=== PATIENT | male | born 1985 | race African-American/Black ===

== ENCOUNTER 2016-12-26 07:08 | Emergency (ER) | payer MEDICARE, MEDICAID ==
[~2016-12-26] VITALS: Ht 180.3 cm; Wt 83.0 kg
[~2016-12-26 07:08] MED LIST: DIVA500T35 PO; QUET200T PO
[2016-12-26] MEDS ORDERED: KETOROLAC TROMETHAMINE 30 MG/ML VIAL IVP ONE (07:30)
[2016-12-26] MEDS ORDERED: SODIUM CHLORIDE 0.9% 1,000 ML IV ONE (07:30)
[2016-12-26 07:41] LABS: BASOPHILS # (AUTO) 0.01 K/uL (0.00-0.20); BASOPHILS % (AUTO) 0.3 % (0.0-2.0); EOSINOPHILS # (AUTO) 0.04 K/uL (0.00-0.70); EOSINOPHILS % (AUTO) 0.84 % (1.0-6.0); HEMATOCRIT 42.5 % (41-53); LYMPHOCYTES # (AUTO) 2.4 K/uL (1.0-4.8); LYMPHOCYTES % (AUTO) 43.8 % (22.0-44.0); MEAN CORPUSCULAR HGB CONC 33.1 G/dL (31.0-37.0); MEAN CORPUSCULAR VOLUME 88 fL (80-100); MONOCYTES # (AUTO) 0.4 K/uL (0.1-1.0); NEUTROPHILS # (AUTO) 2.5 K/uL (1.8-7.7); NEUTROPHILS % (AUTO) 47.2 % (40.0-70.0); PLATELET COUNT (AUTO) 235 K/uL (150-450); RED BLOOD CELL COUNT(AUTO) 4.85 MIL/uL (4.50-5.90); RED CELL DISTRIBUTION WIDTH 14.8 % (11.5-14.5); WHITE BLOOD COUNT (AUTO) 5.4 K/uL (4.5-11.0)
[2016-12-26 07:42] LABS: RBC MORPHOLOGY COMMENT NORMAL RBC MORPH
[2016-12-26 07:52] LABS: ANION GAP 9 mmol/L (8-16); CALCIUM, TOTAL 8.9 mg/dL (8.8-10.5); CARBON DIOXIDE 27 mmol/L (22-29); CHLORIDE 101 mmol/L (98-107); GLOMERULAR FILTR. RATE CALC > 60 mL/min (>60); POTASSIUM 3.3 mmol/L (3.5-5.1); SODIUM SERUM 137 mmol/L (136-145); UREA NITROGEN, BLOOD 19 mg/dL (7-18)
[2016-12-26 07:58] LABS: ALANINE AMINOTRANSFERASE 39 U/L (12-78); ALBUMIN 3.8 g/dL (3.4-5.0); ASPARTATE AMINOTRANSFERASE 34 U/L (15-37); BILIRUBIN,TOTAL 0.4 mg/dL (0.1-1.0); TOTAL PROTEIN, SERUM 7.9 g/dL (6.4-8.2)
[2016-12-26 08:02] LABS: APPEARANCE,URINE TURBID (CLEAR); GLUCOSE, URINE (UA) NEGATIVE (NEGATIVE); KETONES,URINE TRACE mg/dL (NEGATIVE); LEUKOCYTE ESTERASE ,URINE SMALL (NEGATIVE); OCCULT BLOOD,URINE LARGE (NEGATIVE); PROTEIN,URINE POS 1+ (NEGATIVE)
[2016-12-26 08:26] LABS: RBC,URINE >100 /HPF (0-2)
[2016-12-26 08:27] LABS: SQUAMOUS EPITHELIAL CELL,UR Rare /LPF (None Seen); WBC,URINE 0-2 /HPF (0-5)
[2016-12-26 10:24] VITALS: BP 119/70
== END 2016-12-26 11:07 | disposition home or self-care (01) ==
LOC: EMS 07:10
DX: N20.9 Urinary calculus, unspecified (principal); I10 Essential (primary) hypertension; F17.210 Nicotine dependence, cigarettes, uncomplicated; F12.90 Cannabis use, unspecified, uncomplicated
CPT/HCPCS: 36415; 74176; 80053; 81001; 85025; 96360; 96361; 99285; J1885; J7030; 96374

== ENCOUNTER 2017-01-09 10:01 | Inpatient (IN) | payer MEDICARE, MEDICAID ==
[~2017-01-09] VITALS: Ht 180.3 cm; Wt 72.6 kg
[2017-01-09 10:48] LABS: BASOPHILS # (AUTO) 0.03 K/uL (0.00-0.20); BASOPHILS % (AUTO) 0.5 % (0.0-2.0); EOSINOPHILS # (AUTO) 0.02 K/uL (0.00-0.70); EOSINOPHILS % (AUTO) 0.34 % (1.0-6.0); HEMATOCRIT 45.2 % (41-53); HEMOGLOBIN 14.8 g/dL (13.5-17.5); LYMPHOCYTES # (AUTO) 1.8 K/uL (1.0-4.8); LYMPHOCYTES % (AUTO) 28.4 % (22.0-44.0); MEAN CORPUSCULAR HEMOGLOBIN 28.8 pg (26.0-34.0); MEAN CORPUSCULAR HGB CONC 32.8 G/dL (31.0-37.0); MEAN CORPUSCULAR VOLUME 88 fL (80-100); MONOCYTES # (AUTO) 0.3 K/uL (0.1-1.0); MONOCYTES % (AUTO) 5.3 % (2.0-9.0); NEUTROPHILS # (AUTO) 4.1 K/uL (1.8-7.7); NEUTROPHILS % (AUTO) 65.5 % (40.0-70.0); PLATELET COUNT (AUTO) 242 K/uL (150-450); RED BLOOD CELL COUNT(AUTO) 5.16 MIL/uL (4.50-5.90); RED CELL DISTRIBUTION WIDTH 14.8 % (11.5-14.5); WHITE BLOOD COUNT (AUTO) 6.3 K/uL (4.5-11.0)
[2017-01-09 10:49] LABS: RBC MORPHOLOGY COMMENT NORMAL RBC MORPH
[2017-01-09 10:59] LABS: ANION GAP 6 mmol/L (8-16); CALCIUM, TOTAL 9.3 mg/dL (8.8-10.5); CARBON DIOXIDE 30 mmol/L (22-29); CHLORIDE 103 mmol/L (98-107); CREATININE 0.96 mg/dL (0.60-1.30); GLOMERULAR FILTR. RATE CALC > 60 mL/min (>60); POTASSIUM 3.5 mmol/L (3.5-5.1); SODIUM SERUM 139 mmol/L (136-145); UREA NITROGEN, BLOOD 14 mg/dL (7-18)
[2017-01-09 11:05] LABS: ALANINE AMINOTRANSFERASE 25 U/L (12-78); ALBUMIN 4.2 g/dL (3.4-5.0); ASPARTATE AMINOTRANSFERASE 21 U/L (15-37); BILIRUBIN,TOTAL 0.4 mg/dL (0.1-1.0); TOTAL PROTEIN, SERUM 8.3 g/dL (6.4-8.2)
[2017-01-09 11:07] LABS: VALPROIC ACID < 3 mcg/mL (50-100)
[2017-01-09] MEDS ORDERED: HALOPERIDOL 5 MG TABLET PO ONE (13:15)
[2017-01-09] MEDS ORDERED: DiphenhydrAMINE HCL 25 MG CAPSULE PO ONE (13:15)
[2017-01-09] MEDS ORDERED: LORazepam 2 MG TABLET PO ONE (13:15)
[2017-01-09] MEDS ORDERED: HALOPERIDOL 5 MG TABLET PO PRN (13:30)
[2017-01-09] MEDS ORDERED: ZOLPIDEM TARTRATE 10 MG TABLET PO PRN (13:30)
[2017-01-09] MEDS ORDERED: IBUPROFEN 600 MG TABLET PO PRN (17:00)
[2017-01-09] MEDS ORDERED: ACETAMINOPHEN 325 MG TABLET PO PRN (17:00)
[2017-01-09 17:20] VITALS: BP 123/75
[2017-01-09] MEDS: NICOTINE 21 MG/24 HOUR PATCH TD SCH (17:57)
[2017-01-10 04:39] VITALS: BP 132/85
[2017-01-10 08:51] VITALS: BP 131/74
[2017-01-10] MEDS: LORazepam 2 MG TABLET PO PRN ×2 (09:18→16:32)
[2017-01-10] MEDS: NICOTINE 21 MG/24 HOUR PATCH TD SCH (09:21)
[2017-01-10] MEDS: QUEtiapine FUMARATE 200 MG TABLET PO SCH (16:32)
[2017-01-10] MEDS: DIVALPROEX SODIUM 500 MG DR TABLET PO SCH (16:32)
[2017-01-10 21:39] VITALS: BP 118/61
[2017-01-10] MEDS ORDERED: IBUPROFEN 400 MG TABLET PO PRN (21:45)
[2017-01-10] MEDS ORDERED: ACETAMINOPHEN 325 MG TABLET PO PRN (21:45)
[2017-01-11 07:47] LABS: HEMOGLOBIN A1C 6.1 % (4.5-6.2)
[2017-01-11 07:49] LABS: CHOL/HDL RATIO 3.1 (4.2-7.3); THYROID STIMULATING HORMONE 0.44 uIU/mL (0.36-3.74)
[2017-01-11] MEDS: DIVALPROEX SODIUM 500 MG DR TABLET PO SCH ×2 (08:32→16:31)
[2017-01-11] MEDS: NICOTINE 21 MG/24 HOUR PATCH TD SCH (08:36)
[2017-01-11 08:55] VITALS: BP 128/82
[2017-01-11] MEDS: QUEtiapine FUMARATE 200 MG TABLET PO SCH ×3 (09:00→17:30)
[2017-01-11 12:39] LABS: APPEARANCE,URINE TURBID (CLEAR); GLUCOSE, URINE (UA) NEGATIVE (NEGATIVE); KETONES,URINE NEGATIVE (NEGATIVE); LEUKOCYTE ESTERASE ,URINE NEGATIVE (NEGATIVE); OCCULT BLOOD,URINE NEGATIVE (NEGATIVE); PH,URINE 7.5 (5.0-8.0); PROTEIN,URINE NEGATIVE (NEGATIVE)
[2017-01-11 12:42] LABS: ADD UA MICROSCOPIC NO
[2017-01-11] MEDS: LORazepam 2 MG TABLET PO PRN (16:31)
[2017-01-11 21:52] VITALS: BP 131/64
[2017-01-12 07:02] LABS: HEMOGLOBIN A1C 6.2 % (4.5-6.2)
[2017-01-12 07:25] LABS: CHOL/HDL RATIO 3.2 (4.2-7.3); CREATINE KINASE, TOTAL 241 U/L (39-308); THYROID STIMULATING HORMONE 1.02 uIU/mL (0.36-3.74)
[2017-01-12 07:45] LABS: CREATINE KINASE MB < 0.5 ng/mL (0-5)
[2017-01-12] MEDS: QUEtiapine FUMARATE 200 MG TABLET PO SCH (09:00)
[2017-01-12] MEDS: DIVALPROEX SODIUM 500 MG DR TABLET PO SCH (09:35)
[2017-01-12] MEDS: NICOTINE 21 MG/24 HOUR PATCH TD SCH (09:39)
[2017-01-13 14:54] LABS: HEPATITIS Bs ANTIGEN SCREEN P Negative (Negative); HEPATITIS C AB SCREEN <0.1 s/co ratio (0.0-0.9)
== END 2017-01-12 15:33 | disposition home or self-care (01) | DRG 885 ==
LOC: EMS 10:03 → 3EX 15:49
DX: F25.1 Schizoaffective disorder, depressive type (principal); F12.90 Cannabis use, unspecified, uncomplicated; F17.210 Nicotine dependence, cigarettes, uncomplicated; E55.9 Vitamin D deficiency, unspecified; G43.909 Migraine, unspecified, not intractable, without status migrainosus; I10 Essential (primary) hypertension; F10.10 Alcohol abuse, uncomplicated; F31.9 Bipolar disorder, unspecified; G47.00 Insomnia, unspecified; F22 Delusional disorders; F19.10 Other psychoactive substance abuse, uncomplicated; Z53.29 Procedure and treatment not carried out because of patient's decision for other reasons; Z91.14 Patient's other noncompliance with medication regimen; Z91.5 Personal history of self-harm; Z71.51 Drug abuse counseling and surveillance of drug abuser; Z79.899 Other long term (current) drug therapy; Z91.013 Allergy to seafood
CPT/HCPCS: 80074; 82306; 82607; 82746; 83036; 83735; 84439; 84443; 86592; 99285; G0480

== ENCOUNTER 2018-07-29 20:12 | Inpatient (IN) | payer OTHER, MEDICAID ==
[~2018-07-29] VITALS: Ht 180.3 cm; Wt 69.4 kg
[~2018-07-29 20:12] MED LIST changes: +DIVA-78 PO; -DIVA500T35 PO
[2018-07-29 21:50] LABS: BASOPHILS % (AUTO) 0.4 % (0.0-2.0); EOSINOPHILS % (AUTO) 0.5 % (1.0-6.0); HEMATOCRIT 44.6 % (41-53); HEMOGLOBIN 15.1 g/dL (13.5-17.5); LYMPHOCYTES # (AUTO) 3.1 K/uL (1.0-4.8); LYMPHOCYTES % (AUTO) 27.1 % (22.0-44.0); MEAN CORPUSCULAR HEMOGLOBIN 29.5 pg (26.0-34.0); MEAN CORPUSCULAR HGB CONC 33.8 G/dL (31.0-37.0); MEAN CORPUSCULAR VOLUME 87 fL (80-100); MONOCYTES # (AUTO) 0.9 K/uL (0.1-1.0); MONOCYTES % (AUTO) 7.5 % (2.0-9.0); NEUTROPHILS # (AUTO) 7.4 K/uL (1.8-7.7); NEUTROPHILS % (AUTO) 64.5 % (40.0-70.0); PLATELET COUNT (AUTO) 253 K/uL (150-450); RED BLOOD CELL COUNT(AUTO) 5.11 MIL/uL (4.50-5.90)
[2018-07-29 21:51] LABS: AMPHET/METH SCREEN,URINE NEGATIVE (NEGATIVE); BARBITURATE SCREEN, URINE NEGATIVE (NEGATIVE); BENZODIAZEPINES SCREEN,URINE NEGATIVE (NEGATIVE); CANNABINOID SCREEN,URINE POSITIVE (NEGATIVE); COCAINE SCREEN,URINE NEGATIVE (NEGATIVE); METHADONE SCREEN, URINE NEGATIVE (NEGATIVE); OPIATE SCREEN,URINE NEGATIVE (NEGATIVE)
[2018-07-29 21:52] LABS: PHENCYCLIDINE SCREEN,URINE NEGATIVE (NEGATIVE)
[2018-07-29 22:00] LABS: ANION GAP 6 mmol/L (8-16); CALCIUM, TOTAL 9.7 mg/dL (8.8-10.5); CARBON DIOXIDE 33 mmol/L (22-29); CHLORIDE 101 mmol/L (98-107); CREATININE 1.13 mg/dL (0.60-1.30); GLOMERULAR FILTR. RATE CALC > 60 mL/min (>60); GLUCOSE,RANDOM 85 mg/dL (70-110); POTASSIUM 3.8 mmol/L (3.5-5.1); SODIUM SERUM 140 mmol/L (136-145); UREA NITROGEN, BLOOD 21 mg/dL (7-18)
[2018-07-29 22:06] LABS: ALANINE AMINOTRANSFERASE 47 U/L (12-78); ALBUMIN 3.9 g/dL (3.4-5.0); ALKALINE PHOSPHATASE 68 U/L (46-116); ASPARTATE AMINOTRANSFERASE 84 U/L (15-37); BILIRUBIN,TOTAL 0.4 mg/dL (0.1-1.0); TOTAL PROTEIN, SERUM 8.2 g/dL (6.4-8.2)
[2018-07-30] MEDS ORDERED: MIRTAZAPINE 15 MG TABLET PO ONE
[2018-07-30] MEDS ORDERED: ZOLPIDEM TARTRATE 10 MG TABLET PO PRN (00:15)
[2018-07-30 00:59] LABS: HEMOGLOBIN A1C 5.7 % (4.5-6.2)
[2018-07-30 01:07] LABS: CHOL/HDL RATIO 2.9 (4.2-7.3); CHOLESTEROL 186 mg/dL (131-200); FREE T4 (FREE THYROXINE) 0.98 ng/dL (0.76-1.46); HDL CHOLESTEROL 64 mg/dL (40-60); LDL CHOL (CALC.) 107 mg/dL (0-130); THYROID STIMULATING HORMONE 0.85 uIU/mL (0.36-3.74); TRIGLYCERIDES 73 mg/dL (15-150)
[2018-07-30 02:51] VITALS: BP 124/83
[2018-07-30] MEDS: LORazepam 2 MG TABLET PO PRN ×2 (02:51→17:23)
[2018-07-30] MEDS: HALOPERIDOL 5 MG TABLET PO PRN ×2 (02:51→15:51)
[2018-07-30 08:10] VITALS: BP 118/62
[2018-07-30 08:31] LABS: BASOPHILS % (AUTO) 0.1 % (0.0-2.0); EOSINOPHILS % (AUTO) 1.1 % (1.0-6.0); HEMOGLOBIN 14.4 g/dL (13.5-17.5); LYMPHOCYTES # (AUTO) 3.6 K/uL (1.0-4.8); LYMPHOCYTES % (AUTO) 42.4 % (22.0-44.0); MEAN CORPUSCULAR HEMOGLOBIN 30.5 pg (26.0-34.0); MEAN CORPUSCULAR VOLUME 87 fL (80-100); MONOCYTES # (AUTO) 0.5 K/uL (0.1-1.0); MONOCYTES % (AUTO) 6.5 % (2.0-9.0); NEUTROPHILS # (AUTO) 4.2 K/uL (1.8-7.7); NEUTROPHILS % (AUTO) 49.9 % (40.0-70.0); PLATELET COUNT (AUTO) 229 K/uL (150-450); RED BLOOD CELL COUNT(AUTO) 4.71 MIL/uL (4.50-5.90)
[2018-07-30 08:59] LABS: ALANINE AMINOTRANSFERASE 35 U/L (12-78); ALBUMIN 3.8 g/dL (3.4-5.0); ALKALINE PHOSPHATASE 58 U/L (46-116); ANION GAP 8 mmol/L (8-16); ASPARTATE AMINOTRANSFERASE 65 U/L (15-37); BILIRUBIN,TOTAL 0.3 mg/dL (0.1-1.0); CALCIUM, TOTAL 9.1 mg/dL (8.8-10.5); CARBON DIOXIDE 28 mmol/L (22-29); CHLORIDE 103 mmol/L (98-107); CHOL/HDL RATIO 2.9 (4.2-7.3); CHOLESTEROL 168 mg/dL (131-200); CREATININE 0.98 mg/dL (0.60-1.30); FREE T4 (FREE THYROXINE) 0.97 ng/dL (0.76-1.46); GLOMERULAR FILTR. RATE CALC > 60 mL/min (>60); GLUCOSE,RANDOM 102 mg/dL (70-110); HDL CHOLESTEROL 57 mg/dL (40-60); LDL CHOL (CALC.) 101 mg/dL (0-130); POTASSIUM 4.1 mmol/L (3.5-5.1); SODIUM SERUM 139 mmol/L (136-145); THYROID STIMULATING HORMONE 0.86 uIU/mL (0.36-3.74); TOTAL PROTEIN, SERUM 7.1 g/dL (6.4-8.2); TRIGLYCERIDES 48 mg/dL (15-150); UREA NITROGEN, BLOOD 18 mg/dL (7-18)
[2018-07-30] MEDS: QUEtiapine FUMARATE 200 MG TABLET PO SCH ×2 (12:44→20:34)
[2018-07-30] MEDS: DIVALPROEX SODIUM 500 MG DR TABLET PO SCH ×2 (12:44→20:34)
[2018-07-30 16:04] VITALS: BP 110/77
[2018-07-31 03:44] VITALS: BP 120/66
[2018-07-31] MEDS: HALOPERIDOL 5 MG TABLET PO PRN ×2 (06:50→16:07)
[2018-07-31] MEDS: LORazepam 2 MG TABLET PO PRN ×2 (06:50→17:20)
[2018-07-31 08:10] VITALS: BP 116/79
[2018-07-31] MEDS: DIVALPROEX SODIUM 500 MG DR TABLET PO SCH ×2 (08:21→20:36)
[2018-07-31] MEDS: QUEtiapine FUMARATE 200 MG TABLET PO SCH (08:21)
[2018-07-31 16:10] VITALS: BP 104/64
[2018-07-31] MEDS: QUEtiapine FUMARATE 300 MG TABLET PO SCH (20:36)
[2018-07-31] MEDS ORDERED: QUEtiapine FUMARATE 300 MG TABLET PO SCH (21:00)
[2018-08-01 05:12] VITALS: BP 115/81
[2018-08-01 08:07] VITALS: BP 132/81
[2018-08-01] MEDS: QUEtiapine FUMARATE 300 MG TABLET PO SCH (08:07)
[2018-08-01] MEDS: DIVALPROEX SODIUM 500 MG DR TABLET PO SCH ×2 (08:07→16:54)
[2018-08-01] MEDS: LORazepam 2 MG TABLET PO PRN (08:08)
[2018-08-01 16:10] VITALS: BP 110/64
[2018-08-01] MEDS: BENZTROPINE MESYLATE 1 MG TABLET PO SCH (16:54)
[2018-08-01] MEDS: QUEtiapine FUMARATE 200 MG TABLET PO SCH (16:55)
[2018-08-02 05:20] VITALS: BP 120/81
[2018-08-02] MEDS: HALOPERIDOL 5 MG TABLET PO PRN (05:37)
[2018-08-02] MEDS: LORazepam 2 MG TABLET PO PRN (05:37)
[2018-08-02] MEDS: QUEtiapine FUMARATE 200 MG TABLET PO SCH ×2 (08:08→16:35)
[2018-08-02] MEDS: DIVALPROEX SODIUM 500 MG DR TABLET PO SCH ×2 (08:08→16:35)
[2018-08-02] MEDS: BENZTROPINE MESYLATE 1 MG TABLET PO SCH ×2 (08:08→16:35)
[2018-08-02 08:23] VITALS: BP 125/85
[2018-08-02] MEDS: FluPHENAZine HCL 5 MG TABLET PO SCH ×2 (09:00→16:35)
[2018-08-02 16:28] VITALS: BP 125/81
[2018-08-03 00:48] VITALS: BP 120/81
[2018-08-03] MEDS: LORazepam 2 MG TABLET PO PRN (08:08)
[2018-08-03] MEDS: QUEtiapine FUMARATE 200 MG TABLET PO SCH (08:08)
[2018-08-03] MEDS: DIVALPROEX SODIUM 500 MG DR TABLET PO SCH (08:08)
[2018-08-03] MEDS: BENZTROPINE MESYLATE 1 MG TABLET PO SCH (08:08)
[2018-08-03] MEDS: FluPHENAZine HCL 5 MG TABLET PO SCH (08:08)
[2018-08-03 08:20] VITALS: BP 103/66
[2018-08-03] MEDS ORDERED: NICOTINE 21 MG/24 HOUR PATCH TD SCH (09:00)
[2018-08-03] MEDS ORDERED: BENZ1TAB10 PO (09:42)
[2018-08-03] MEDS ORDERED: FLUP5 PO (09:43)
[2018-08-03] MEDS ORDERED: DIVA250T4 PO (09:43)
[2018-08-03] MEDS ORDERED: QUET400T PO (09:44)
[2018-08-03] MEDS ORDERED: NICO-802 TD (10:53)
== END 2018-08-03 10:40 | disposition left against medical advice (07) | DRG 885 ==
LOC: EMS 20:12 → B2X 07-30 00:57
PROVIDERS: ADMIT Psychiatry & Neurology Child & Adolescent Psychiatry; ATTEND Psychiatry & Neurology Child & Adolescent Psychiatry
DX: F25.0 Schizoaffective disorder, bipolar type (principal); D72.829 Elevated white blood cell count, unspecified; I10 Essential (primary) hypertension; F17.210 Nicotine dependence, cigarettes, uncomplicated; F12.10 Cannabis abuse, uncomplicated; F32.9 Major depressive disorder, single episode, unspecified; F41.9 Anxiety disorder, unspecified; G43.909 Migraine, unspecified, not intractable, without status migrainosus; Z91.013 Allergy to seafood; Z59.0 Homelessness; Z79.899 Other long term (current) drug therapy
CPT/HCPCS: 83036; 84439; 84443; G0480